=== PATIENT | female | born 1995 | race Two or more races ===

== ENCOUNTER 2018-12-13 18:01 | Emergency (ER) | payer OTHER ==
[~2018-12-13] VITALS: Ht 162.6 cm; Wt 64.9 kg
[~2018-12-13 18:01] MED LIST: AZIT250T13 PO
--- NOTE | 2018-12-13 19:10 | NUR ---
Patient discharged to home in stable conditon. Written and verbal after care instructions given. Patient verbalizes understanding of instructions.
[2018-12-13 19:12] VITALS: BP 138/97
== END 2018-12-13 19:13 | disposition home or self-care (01) ==
LOC: ER 18:09
DX: H92.01 Otalgia, right ear (principal); Z79.2 Long term (current) use of antibiotics
CPT/HCPCS: A4663

== ENCOUNTER 2019-03-04 12:05 | Emergency (ER) | payer OTHER ==
[~2019-03-04] VITALS: Ht 160 cm; Wt 63.5 kg
[2019-03-04 12:58] LABS: *URINE HCG, QUAL NEGATIVE (NEGATIVE)
[2019-03-04 13:01] LABS: *BILIRUBIN,URIN NEGATIVE (NEGATIVE); *BLOOD, URINE 3+ (NEGATIVE); *CLARITY,URINE CLOUDY (CLEAR); *COLOR,URINE YELLOW (YELLOW); *KETONES,URINE NEGATIVE (NEGATIVE); *UROBILINOGEN,URINE 0.2 E.U./dl (NORMAL); LEUKOCYTE ESTERASE ,URINE 1+ (NEGATIVE); NITRITE, URINE NEGATIVE (NEGATIVE); UGLUCOSE NEGATIVE (NEGATIVE)
[2019-03-04 13:02] LABS: RBC,URINE TNTC /HPF (0-3)
[2019-03-04 13:03] LABS: WBC,URINE TNTC /HPF (0-3)
[2019-03-04 13:05] LABS: BACTERIA,URINE FEW /HPF (NONE SEEN); SQUAMOUS EPITHELIAL CELL,UR FEW /HPF (NONE SEEN)
[2019-03-04 13:26] VITALS: BP 101/74
--- NOTE | 2019-03-04 13:26 | NUR ---
Patient discharged to home in stable conditon. Written and verbal after care instructions given. Patient verbalizes understanding of instructions.PT WAKS IN STEADY GAIT.
[2019-03-04] MEDS ORDERED: CEphaleXIN 500 MG CAPSULE PO ONE (13:30)
[2019-03-04] MEDS ORDERED: CEphaleXIN 500 MG CAPSULE ONE (13:33)
== END 2019-03-04 13:34 | disposition home or self-care (01) ==
LOC: ER 12:05
DX: N12 Tubulo-interstitial nephritis, not specified as acute or chronic (principal); Z79.2 Long term (current) use of antibiotics
CPT/HCPCS: 84703; 87077; 87086; A4663

== ENCOUNTER 2020-10-03 12:52 | Emergency (ER) | payer OTHER ==
[~2020-10-03] VITALS: Ht 162.6 cm; Wt 56.7 kg
--- NOTE | 2020-10-03 13:10 | NUR ---
Pending MD evaluation@this time
--- NOTE | 2020-10-03 13:12 | NUR ---
Hospital gown was provided to patient and instructed to change.
[2020-10-03 13:15] LABS: HEMATOCRIT 38.6 % (31.2-41.9); MEAN CORPUSCULAR HEMOGLOBIN 29.9 uug (24.7-32.8); MEAN CORPUSCULAR VOLUME 89.3 fL (75.5-95.3); PLATELET COUNT (AUTO) 182 K/uL (179-408)
--- NOTE | 2020-10-03 13:19 | NUR ---
Patient was moved to another room for pevic exam by .
[2020-10-03 13:25] LABS: BILIRUBIN,DIRECT 0.1 mg/dL (0.0-0.2); BILIRUBIN,TOTAL 0.2 mg/dL (0.2-1.0); CREATININE 0.6 mg/dL (0.6-1.3); POTASSIUM 4.5 mmol/L (3.5-5.1); TOTAL PROTEIN, SERUM 7.3 g/dL (6.4-8.2)
[2020-10-03] MEDS ORDERED: CEFTRIAXONE 500 MG VIAL IM ONE (13:45)
[2020-10-03] MEDS ORDERED: KETOROLAC TROMETHAMINE 60 MG INJ IM ONE ×2 (13:45→13:53)
[2020-10-03] MEDS ORDERED: DOXYCYCLINE HYCLATE 100 MG TABLET PO ONE (13:45)
[2020-10-03] MEDS ORDERED: DOXYCYCLINE HYCLATE 100 MG TABLET ONE (13:53)
[2020-10-03] MEDS ORDERED: LIDOCAINE HCL 1% 20 ML VIAL ONE (13:53)
[2020-10-03] MEDS ORDERED: CEFTRIAXONE 500 MG VIAL ONE (13:54)
[2020-10-03 13:59] LABS: *URINE HCG, QUAL NEGATIVE (NEGATIVE)
[2020-10-03 14:02] LABS: *BILIRUBIN,URIN NEGATIVE (NEGATIVE); *BLOOD, URINE NEGATIVE (NEGATIVE); *CLARITY,URINE CLEAR (CLEAR); *COLOR,URINE YELLOW (YELLOW); *KETONES,URINE TRACE (NEGATIVE); *UROBILINOGEN,URINE 0.2 E.U./dl (NORMAL); LEUKOCYTE ESTERASE ,URINE 1+ (NEGATIVE); NITRITE, URINE NEGATIVE (NEGATIVE); UGLUCOSE NEGATIVE (NEGATIVE)
--- NOTE | 2020-10-03 14:48 | NUR ---
Patient is resting comfortably on gurney with eyes closed, pending written discharge papers from MD@this time
[2020-10-03] MEDS ORDERED: DOXY-326 PO (15:53)
[2020-10-03] MEDS ORDERED: IBUP-1955 PO (15:53)
[2020-10-03] MEDS ORDERED: METR500T PO (15:53)
--- NOTE | 2020-10-03 15:57 | NUR ---
Patient discharged to home in stable condition with steady gait. Written and verbal after care instructions given to patient. Patient verbalized understanding & compliance of instructions. Stressed follow up with guillotine operator and primary doctor or return to ER for worsening s/s.
[2020-10-03 16:18] LABS: BACTERIA,URINE FEW /HPF (NONE SEEN); RBC,URINE 0-3 /HPF (0-3)
[2020-10-03 16:19] LABS: MUCUS,URINE FEW /LPF (0-FEW); SQUAMOUS EPITHELIAL CELL,UR MANY /HPF (NONE SEEN)
[2020-10-06 15:05] LABS: *GC NAA Negative; *TRIC.VAG. NAA Negative
== END 2020-10-03 15:57 | disposition home or self-care (01) ==
LOC: ER 12:59
DX: N73.9 Female pelvic inflammatory disease, unspecified (principal); Z97.5 Presence of (intrauterine) contraceptive device; Z86.19 Personal history of other infectious and parasitic diseases
CPT/HCPCS: 36415; 76856; 80048; 80076; 81001; 83690; 84703; 85025; 87086; 87210; 87491; 96372 ×2; 99284; J0696; J1885; J3490; A4663